=== PATIENT | male | born 1930 | race Caucasian/White ===

== ENCOUNTER → 2016-06-08 | Outpatient (CLI) | payer MEDICARE ==
[~2016-06-08] MED LIST: AC325T PO; ALBU2.5V12 INH; ALBU2.5V4 INH; ALBU8.5H4 IH; CHOL10002 PO; CITA10SO PO; ESCI10TA PO; LORA-714 PO; LORA10TA76 PO; MMT17NA NSEACH; MOME13HF IH; OMEP20CA6 PO; OMEP40CA36 PO; PRD10T PO; PRD20T PO; PRED1TAB PO; PRED5TAB PO; RANI300T4 PO; RIVA15TA2 PO; ROFL500T PO; TIOT18CA IH; TRAM-25 PO; VITA1TAB78 PO; [UNRECOGNIZED DRUG - CODE] TOP; [UNRECOGNIZED DRUG - OTHER] IV
== END ==
LOC: RT 09:10
PROVIDERS: ATTEND Family Medicine
DX: Z01.818 Encounter for other preprocedural examination (principal)
CPT/HCPCS: 93005

== ENCOUNTER → 2016-06-30 | Outpatient (CLI) | payer MEDICARE | LOC: RAD 10:12 | PROVIDERS: ATTEND Surgery | DX: Z93.6 Other artificial openings of urinary tract status (principal); C61 Malignant neoplasm of prostate | CPT/HCPCS: 76770 ==

== ENCOUNTER → 2016-08-10 | Outpatient (CLI) | payer MEDICARE ==
[2016-08-10 14:43] LABS: ALBUMIN 4.2 g/dL (3.4-5.0); CALCULATED IONIZED CALCIUM 4.3 mg/dL (3.8-4.6); TOTAL PROTEIN 7.5 g/dL (6.4-8.5)
== END ==
LOC: LAB 13:46
PROVIDERS: ATTEND Internal Medicine
DX: Z01.812 Encounter for preprocedural laboratory examination (principal); M81.0 Age-related osteoporosis without current pathological fracture
CPT/HCPCS: 36415; 80053; 83970

== ENCOUNTER → 2016-08-19 | Outpatient (CLI) | payer MEDICARE ==
--- NOTE | 2016-08-19 11:43 | Diagnostic Imaging Report ---
INDICATION: Pain and swelling in the left hand after falling 2 days ago. Unable to remove the ring. EXAMINATION: Left hand on 08/19/2016. FINDINGS: There is narrowing in the radiocarpal joint space with marked narrowing and spurring as well as subchondral cystic change and sclerosis seen at the first carpal/metacarpal joint with radial subluxation of the metacarpal in relation to the carpal bones. Large subchondral cystic changes are noted in the distal ulna and radius. There is an irregular lesion within the ulnar aspect of the joint distal to the ulna which measures approximately 1 cm in greatest dimension. It is likely a large loose body which contains internal cystic changes as well, perhaps due to an old injury or due to degenerative findings. There is a nonspecific hyperdensity distal to this area, perhaps due to an old injury, which appears to represent a tiny less than 2 mm foreign body. 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 Severe degenerative changes are noted within the distal interphalangeal joint of the fourth finger with narrowing, spurring, and subchondral cystic change noted. Similar findings to a lesser degree are seen within the second, third, and and fifth fingers. Narrowing and subchondral sclerosis are noted at the second and third metacarpal/phalangeal joint spaces. No fracture is appreciated. Soft tissue swelling is seen about the hand. IMPRESSION: 1. 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 No acute fracture is appreciated. 2. The report was called and faxed to Tanya at office of Dr. Grider by [email or web address]@11:30 AM. Dictated by: Dictated on workstation # [id number]
== END ==
LOC: RAD 10:51
PROVIDERS: ATTEND Family Medicine
DX: M79.642 Pain in left hand (principal); M19.032 Primary osteoarthritis, left wrist
CPT/HCPCS: 73130